=== PATIENT | female | born 1995 | race Caucasian/White ===

== ENCOUNTER → 2017-03-25 | Outpatient (REF) | payer BC ==
[~2017-03-25] MED LIST: FLEXERIL PO; TYLENOL OR
== END ==
LOC: M SFHCWAGY 14:58
PROVIDERS: ATTEND Nurse Practitioner Women's Health
DX: Z12.4 Encounter for screening for malignant neoplasm of cervix (principal)

== ENCOUNTER → 2018-01-18 | Outpatient (REF) | payer BC ==
[2018-01-18 22:55] LABS: CHLAMYDIA DNA AMPLIFICATION POSITIVE (NEGATIVE); GC DNA AMPLIFICATION NEGATIVE (NEGATIVE)
[2018-01-19 11:03] LABS: HEPATITIS B SURFACE ANTIGEN NEGATIVE (NEGATIVE)
[2018-01-19 11:28] LABS: HEPATITIS B CORE ANTIBODY IGM NEGATIVE (NEGATIVE)
[2018-01-19 11:32] LABS: HEPATITIS A ANTIBODY IGM NEGATIVE (NEGATIVE)
== END ==
LOC: M SFHCLERA 17:00
DX: J02.9 Acute pharyngitis, unspecified (principal); Z11.3 Encounter for screening for infections with a predominantly sexual mode of transmission
CPT/HCPCS: 87340

== ENCOUNTER 2018-04-07 13:20 | Emergency (ER) | payer BC ==
[2018-04-07] MEDS: IBUPROFEN 800 MG TAB PO (14:15)
[2018-04-07 14:25] LABS: BASO # 0.1 10^3/uL (0.0-0.2); BASO % 0.3 % (0.0-1.0); EOS % 0.1 % (0.0-3.0); HEMATOCRIT 41.3 % (36.0-47.0); HEMOGLOBIN 13.7 g/dl (12.0-15.5); IMMATURE GRANULOCYTE % 0.5 % (0-3.0); LYMPH # 1.3 10^3/uL (1.5-6.5); LYMPH % 7.4 % (24.0-44.0); MEAN CORPUSCULAR HEMOGLOBIN 26.9 pg (27.0-33.0); MEAN CORPUSCULAR HGB CONC 33.2 g/dl (32.0-36.5); MONO # 1.5 10^3/uL (0.0-0.8); MONO % 8.4 % (0.0-5.0); NEUTROPHILS # 14.4 10^3/uL (1.8-7.7); NEUTROPHILS % 83.3 % (36.0-66.0); PLATELET COUNT, AUTOMATED 291 10^3/uL (150-450); RED CELL DISTRIBUTION WIDTH 13.7 % (11.5-14.5); WHITE BLOOD COUNT 17.2 10^3/uL (4.0-10.0)
[2018-04-07 14:41] LABS: CONTROL LINE MONO INT CTR LINE PRESENT; MONO SCRN NEGATIVE (NEGATIVE)
[2018-04-07 14:45] LABS: ANION GAP 10 MEQ/L (8-16); BLOOD UREA NITROGEN 7 MG/DL (7-18); C REACTIVE PROTEIN QUANTITATIV 8.91 MG/DL (0.00-0.30); CARBON DIOXIDE LEVEL 26 MEQ/L (21-32); CHLORIDE LEVEL 100 MEQ/L (98-107); CREATININE FOR GFR 0.78 MG/DL (0.55-1.30); GLOMERULAR FILTRATION RATE > 60.0 (>60); GLUCOSE, FASTING 96 MG/DL (70-100); POTASSIUM SERUM 4.3 MEQ/L (3.5-5.1); SODIUM LEVEL 136 MEQ/L (136-145)
[2018-04-07 15:00] LABS: ERYTHROCYTE SEDIMENTATION RATE 21 mm/hr (0-20)
== END 2018-04-07 15:28 | disposition home or self-care (01) ==
LOC: M ED 13:20
DX: J02.9 Acute pharyngitis, unspecified (principal); D72.829 Elevated white blood cell count, unspecified; Z98.890 Other specified postprocedural states
CPT/HCPCS: 80048

== ENCOUNTER → 2018-07-20 | Outpatient (REF) | payer BC ==
[2018-07-20 15:22] LABS: CHLAMYDIA DNA AMPLIFICATION NEGATIVE (NEGATIVE); GC DNA AMPLIFICATION NEGATIVE (NEGATIVE)
== END ==
LOC: M SFHCWAGY 11:25
DX: Z12.4 Encounter for screening for malignant neoplasm of cervix (principal)
CPT/HCPCS: 87591

== ENCOUNTER → 2019-05-02 | Outpatient (REF) | payer BC ==
[~2019-05-02] MED LIST changes: +IBUP-1022 PO; +KEFL500C17 PO
[2019-05-02 21:35] LABS: CHLAMYDIA DNA AMPLIFICATION NEGATIVE (NEGATIVE); GC DNA AMPLIFICATION NEGATIVE (NEGATIVE)
== END ==
LOC: M LAB REF 17:33
PROVIDERS: ATTEND Advanced Practice Midwife
DX: Z34.01 Encounter for supervision of normal first pregnancy, first trimester (principal); Z3A.00 Weeks of gestation of pregnancy not specified

== ENCOUNTER → 2019-06-01 | Outpatient (CLI) | payer BC ==
[~2019-06-01] MED LIST changes: +ACET-683 PO; +IBUP80TA PO; +STUACAP PO
--- NOTE | 2019-06-02 03:27 | REP ---
Clinical: Anatomical evaluation. Comparison: None . Findings: Examination demonstrates a single live intrauterine in cephalic presentation. motion is identified by technologist. Placenta is noted anterior and grade zero without evidence for placenta previa or abruption. Amniotic fluid volume is normal. Cervix measures 4.2 cm in length and appears closed. No evidence for nuchal cord. Gestational age by LMP 19 weeks 1 day with ADELINA 10/25/2019 . Gestational age by current measurements the 18 weeks 5 days with ADELINA 10/28/2019 . FHR equals 160 beats per minute. BPD 4.0 cm 18 weeks 1 day HC 16.1 cm 18 weeks 6 days AC 13.3 cm 18 weeks 5 days FL 2.90 cm 19 weeks 0 days HL 2.8 cm 18 weeks 6 days HC/AC ratio 1.21 Estimated weight 259 grams ( 37 percentile). Anatomical assessment demonstrates normal structures including cranium, choroid plexus, cavum, cerebellum/posterior fossa, lungs, four-chamber heart, diaphragm, stomach, cord insertion/three-vessel cord, kidneys/bladder, spine, and extremities. Limited evaluation of the facial features and cardiac ventricular outflow tracts. Impression: Single live intrauterine in cephalic presentation demonstrating appropriate interval growth. Anatomical limitations as noted above. Electronically Signed by Medhat Burns MD 06/02/2019 03:18 A
== END ==
LOC: M RAD 13:19
PROVIDERS: ATTEND Advanced Practice Midwife
DX: Z34.82 Encounter for supervision of other normal pregnancy, second trimester (principal); Z3A.18 18 weeks gestation of pregnancy

== ENCOUNTER → 2019-07-13 | Outpatient (CLI) | payer BC ==
[~2019-07-13] MED LIST changes: -ACET-683 PO; -IBUP80TA PO; -STUACAP PO
--- NOTE | 2019-07-14 04:05 | REP ---
Clinical: Anatomical evaluation. Comparison: 06/01/2019 . Findings: Examination demonstrates a single live intrauterine in cephalic presentation. motion is identified by technologist. Placenta is noted anterior and grade one without evidence for placenta previa or abruption. Amniotic fluid volume is normal. Cervix measures 3.9 cm in length and appears closed. No evidence for nuchal cord. Gestational age by LMP 25 weeks 1 day with ADELINA 10/25/2019 . Gestational age by current measurements 25 weeks 0 days with ADELINA is 10/26/2019 . FHR equals 132 beats per minute. Estimated weight 774 grams ( 44th percentile). Anatomical assessment demonstrates normal structures including cranium, choroid plexus, cavum, cerebellum/posterior fossa, facial features, lungs, four-chamber heart/ventricular outflow tracts, diaphragm, stomach, cord insertion/three-vessel cord, kidneys/bladder, and lower extremities. Impression: 1. single live intrauterine in cephalic presentation demonstrating appropriate interval growth. 2. In conjunction with prior examination anatomical assessment is complete and normal. No gross abnormalities are identified. Electronically Signed by Medhat Burns MD 07/14/2019 03:57 A
== END ==
LOC: M RAD 10:59
PROVIDERS: ATTEND Obstetrics & Gynecology
DX: Z34.02 Encounter for supervision of normal first pregnancy, second trimester (principal)

== ENCOUNTER → 2019-07-24 | Outpatient (CLI) | payer BC ==
[2019-07-24 20:35] LABS: GLUCOSE CHALLENGE TEST 1 HOUR 88 MG/DL (LESS THAN 140)
[2019-07-24 20:36] LABS: HEMATOCRIT 36.6 % (36.0-47.0); HEMOGLOBIN 12.1 g/dl (12.0-15.5); MEAN CORPUSCULAR HEMOGLOBIN 29.1 pg (27.0-33.0); MEAN CORPUSCULAR HGB CONC 33.1 g/dl (32.0-36.5); PLATELET COUNT, AUTOMATED 336 10^3/uL (150-450); RED BLOOD COUNT 4.16 10^6/uL (4.00-5.40); WHITE BLOOD COUNT 10.4 10^3/uL (4.0-10.0)
[2019-07-24 21:03] LABS: RUBELLA IgG QUALITATIVE IMMUNE (IMMUNE)
== END ==
LOC: M LRY 14:45
PROVIDERS: ATTEND Obstetrics & Gynecology
DX: Z34.02 Encounter for supervision of normal first pregnancy, second trimester (principal); Z36.89 Encounter for other specified antenatal screening
CPT/HCPCS: 36415; 82950; 85027; 86762; 86850; 86900; 86901; J2790

== ENCOUNTER → 2019-09-26 | Outpatient (REF) | payer BC | LOC: M SFHCWAGY 16:55 | PROVIDERS: ATTEND Advanced Practice Midwife | DX: Z34.93 Encounter for supervision of normal pregnancy, unspecified, third trimester (principal) ==

== ENCOUNTER → 2019-10-02 | Outpatient (REF) | payer BC | LOC: M PLALAB 10:58 | PROVIDERS: ATTEND Advanced Practice Midwife | DX: Z36.85 Encounter for antenatal screening for Streptococcus B (principal) ==

== ENCOUNTER → 2019-10-13 | Outpatient (CLI) | payer BC ==
[2019-10-13 18:21] LABS: HEMOGLOBIN 13.2 g/dl (12.0-15.5); MEAN CORPUSCULAR HEMOGLOBIN 28.1 pg (27.0-33.0); MEAN CORPUSCULAR HGB CONC 32.2 g/dl (32.0-36.5); MEAN CORPUSCULAR VOLUME 87.4 fl (80.0-96.0); PLATELET COUNT, AUTOMATED 325 10^3/uL (150-450); RED BLOOD COUNT 4.69 10^6/uL (4.00-5.40); WHITE BLOOD COUNT 12.6 10^3/uL (4.0-10.0)
[2019-10-13 18:37] LABS: TOTAL PROTEIN,RANDOM URINE 26.9 MG/DL (0.0-12.0)
[2019-10-13 18:40] LABS: ALT/SGPT 31 U/L (12-78); BILIRUBIN,TOTAL 0.3 MG/DL (0.2-1.0); GLOMERULAR FILTRATION RATE > 60.0 (>60); LDH LACTATE DEHYDROGENASE 189 U/L (84-246); URIC ACID 5.3 MG/DL (2.6-6.0)
== END ==
LOC: M PLALAB 15:40
PROVIDERS: ATTEND Advanced Practice Midwife
DX: O16.3 Unspecified maternal hypertension, third trimester (principal); Z3A.00 Weeks of gestation of pregnancy not specified

== ENCOUNTER 2019-10-28 16:47 | Inpatient (IN) | payer BC ==
[2019-10-28] VITALS (27 sets, daily range): BP systolic 113–194; BP diastolic 53–138
[~2019-10-28] VITALS: Ht 154.9 cm; Wt 82.8 kg
[2019-10-28] MEDS ORDERED: STUACAP PO (17:31)
[2019-10-28 20:25] LABS: HEMATOCRIT 39.5 % (36.0-47.0); HEMOGLOBIN 12.9 g/dl (12.0-15.5); MEAN CORPUSCULAR HEMOGLOBIN 27.8 pg (27.0-33.0); MEAN CORPUSCULAR HGB CONC 32.7 g/dl (32.0-36.5); MEAN CORPUSCULAR VOLUME 85.1 fl (80.0-96.0); PLATELET COUNT, AUTOMATED 282 10^3/uL (150-450); RED BLOOD COUNT 4.64 10^6/uL (4.00-5.40); WHITE BLOOD COUNT 14.6 10^3/uL (4.0-10.0)
[2019-10-28] MEDS ORDERED: FENTANYL 2MCG/ML ROPIVACAINE 0.2% IN 0.9% NACL 100ML IVBAG As Ordered ONE (20:41)
[2019-10-28] MEDS ORDERED: LR 1,000 ML IV SCH (21:00)
[2019-10-28] MEDS ORDERED: LR 1,000 ML IV ONE (21:00)
[2019-10-28] MEDS: FENTANYL/ROPIVACAINE/NACL BAG 100 ML EPIDURAL SCH (21:38)
--- NOTE | 2019-10-28 22:09 | HPEPDOC ---
Obstetrical History & Physical General Date of Admission Oct 28, 2019 at 18:40 History of Present Illness 24-year-old 1, para 0 at 40 weeks 0 days estimated gestational age by last which appeared confirmatory ten-week ultrasound presents to labor delivery completes contractions. She reports contractions throughout the day. She denies any vaginal bleeding, leakage of fluid. She reports active movement. Her course has been unremarkable. She initiated care first trimesters and has been appropriate throughout. 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 BREAST: . ABDOMEN: Gravid and non-tender to touch. FETUS: Is vertex (VTX) by sterile vaginal examination (SVE), fetus is vertex (VTX) by Mohsen. HEART RATE: Regular rate and rhythm. LUNGS: Clear to auscultation (CTA). EXTREMITIES: No edema. No clonus. Deep tendon reflexes (DTRs) + . Vital Signs/I&O Vital Signs Date Time Temp Pulse Resp B/P (MAP) Pulse Ox O2 Delivery O2 Flow Rate FiO2 10/28/19 18:50 98.1 83 18 133/81 (98) Room Air Laboratory Data 24H LABS Laboratory Tests 2 10/28/19 18:42: Serology Scanned Report Hepatitis B Testing 10/28/19 19:57: Nucleated Red Blood Cells % (auto) 0.0 CBC/BMP Laboratory Tests 10/28/19 19:57 Pertinent Laboratoy Data Blood Type: A- RBC Antibody Screen: Negative HIV: Negative Hepatitis B: Negative Hepatitis C: Negative Rapid Plasma Reagin: Nonreactive Rubella: Immune Chlamydia/Gonorrhea: Negative Group B Streptococcus: Negative Cystic Fibrosis: Negative Anatomy Ultrasound Placenta Location: Anterior Normal Anatomy: Yes Placenta Previa: No Steroid Therapy Steroid Therapy: No Vaginal Examination Dilation: 4 cm Effacement: 70% Station: -2 Cervical Consistency: Medium Cervical Position: Middle Presentation: Cephalic presentation Assessment Heart Rate (FHR): 130 Variability: Moderate Accelerations: Positive Decelerations: Variable Tocometer Contractions: Yes Frequency: regular Assessment/Plan Assessment 24-year-old 1, para 0 at 40 weeks 4 days estimated gestational age here in active labor shortly after presentation she had a spontaneous rupture of membranes. 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 Diet: Clears. Group B Streptococcus (GBS) negative. Labs and intravenous (IV) per unit protocol. Counseled on Pitocin and induction of labor (IOL). Anticipate normal spontaneous delivery (). C-S as appropriate. Labor and Delivery Counseling Patient's been consented and counseled in regards to medications procedures performed labor and delivery. She is also been verbally consented for emergency surgery, blood products and anesthesia desires to proceed with admission RONDA PALACIOS MD. Oct 28, 2019 22:09
[2019-10-28] MEDS ORDERED: LABETALOL HCL 100 MG/20 ML VIAL IV STA (23:41)
[2019-10-29] VITALS (33 sets, daily range): BP systolic 110–132; BP diastolic 54–79
[2019-10-29] MEDS ORDERED: NALOXONE INJ 0.4 MG/1 ML VIAL (J2310) IV PRN (02:00)
[2019-10-29] MEDS ORDERED: REFRIGERATOR IV KEYS XX PRN (02:00)
[2019-10-29] MEDS ORDERED: EPIDURAL/PCA KEYS XX PRN (02:00)
[2019-10-29] MEDS ORDERED: EPIDURAL COMMENT XX SCH (02:00)
[2019-10-29] MEDS ORDERED: diphenhydrAMINE INJ 50MG/ML VIAL (J1200) IV PRN (02:00)
[2019-10-29] MEDS ORDERED: ONDANSETRON 4MG/2ML VIAL (J2405) IV PRN (02:00)
[2019-10-29] MEDS ORDERED: LACTATED RINGER'S 1000 ML IV PRN (02:00)
[2019-10-29] MEDS ORDERED: ePHEDrine SULFATE 25 MG/5 ML(5MG/ML) SYRINGE IV PRN (02:00)
[2019-10-29] MEDS ORDERED: ACETAMINOPHEN 500 MG TAB PO PRN (04:45)
[2019-10-29] MEDS: FENTANYL/ROPIVACAINE/NACL BAG 100 ML EPIDURAL SCH (05:38)
[2019-10-29] MEDS ORDERED: OXYTOCIN 30 UNITS IN 0.9% NaCl 500ML IV BAG (J2590) As Ordered ONE (06:47)
[2019-10-29] MEDS ORDERED: OXYTOCIN DRIP 30 UNITS in IV 1 EA IV SCH (08:23)
[2019-10-29] MEDS ORDERED: ACETAMINOPHEN TAB 650MG DOSE (2X325MG) PO PRN (08:30)
[2019-10-29] MEDS ORDERED: METHYLERGONOVINE MALEATE 0.2 MG TAB PO PRN (08:30)
[2019-10-29] MEDS ORDERED: DOCUSATE SODIUM 100 MG CAP PO PRN (08:30)
[2019-10-29] MEDS ORDERED: ANUSOL HC CREAM 30GM TOP PRN (08:30)
[2019-10-29] MEDS ORDERED: IBUPROFEN 600 MG TAB PO PRN (08:30)
[2019-10-29] MEDS ORDERED: MEASLES,MUMPS,RUBELLA VACCINE INJ (MMR-II) (90707) SC SCH (08:30)
[2019-10-29] MEDS ORDERED: RHOGAM 300 MCG (1500 IU) INJ (J2790) IM SCH (08:30)
[2019-10-29] MEDS ORDERED: MOM 30ML SUSPENSION UDC PO PRN (08:30)
[2019-10-29] MEDS ORDERED: IBUPROFEN 800 MG TAB PO PRN (08:30)
[2019-10-29] MEDS ORDERED: DIBUCAINE 1% OINTMENT 30GM TOP PRN (08:30)
--- NOTE | 2019-10-29 08:39 | DNPDOC ---
[facility] Delivery Note Delivery Note DATE OF DELIVERY: 10/29/19 PREDELIVERY DIAGNOSIS: 40-4/7 weeks' gestation and labor. POST DELIVERY DIAGNOSIS: Delivered. PROCEDURE: Spontaneous vaginal delivery. APPLE PICKING SUPERVISOR: Dr. Coon ANESTHESIA: Epidural. ESTIMATED BLOOD LOSS: 300 mL. GENDER: Female. APGARS:, 9 and 9. WEIGHT:, 3110 grams or 6 pounds 4 ounces. LACERATIONS:. Right labial laceration COUNTS: 5 laparotomy sponges accounted for prior to after delivery. One sharps removed delivery field. DELIVERY NOTE: 10/29/2019, had a spontaneous vaginal delivery of viable, female , Apgars, 9 and 9. Weight was 3110 g, 6 lbs. 4 oz. Head was delivered occiput anterior (OA), followed by delivery of the shoulders and corpus. Infant was handed to mom with a good cry. Cord was clamped times two and was cut by the father of baby under my direction. Placenta was then drained and delivered grossly intact. A premixed bag of 500 mL of normal saline with 30 units of Pi tocin was then bolused along with uterine massage until the uterus was firm. On inspection,. There was a right labial laceration which was repaired with 3-0 Vicryl On reinspection, cervix, vagina, perineum was grossly intact and hemostatic. Mom and baby in recovery on stable condition. RONDA COON MD. Oct 29, 2019 08:39
[2019-10-29] MEDS: PRENATAL VITAMINS CHEWABLE TABLET PO SCH (09:19)
[2019-10-29] MEDS: ACETAMINOPHEN 500 MG TAB PO PRN (17:10)
[2019-10-30 06:00] VITALS: BP 105/60
--- NOTE | 2019-10-30 07:59 | IPNPDOC ---
Progress Note Date of Service: Oct 30, 2019 Day#: 1 Progress Note SUBJECT: Doing well without any issues. Positive voids, positive ambulation and breast-feeding OBJECTIVE: VITAL SIGNS: Within normal limits, afebrile. Alert and oriented times three. Abdomen: Fundus firm at U-2. Soft, NTTP. [Minimal] lochia. ASSESSMENT: day #1 status post normal spontaneous vaginal deliveries. Recovering in stable condition PLAN: 1. Continue routine care. 2. Discharge plans for tomorrow VS, I&O, 24H, Fishbone Vital Signs/I&O Vital Signs Date Time Temp Pulse Resp B/P (MAP) Pulse Ox O2 Delivery O2 Flow Rate FiO2 10/30/19 06:00 97.7 76 20 105/60 (75) 97 Room Air I&O- Last 24 Hours up to 6 AM 10/30/19 06:00 Intake Total 4025.4 ml Output Total 800 ml Balance 3225.4 ml RONDA PALACIOS MD. Oct 30, 2019 07:59
[2019-10-30] MEDS ORDERED: INFLUENZA QUADRIVALENT PF VACCINE 0.5ML SYRINGE (90686) IM ONE (09:00)
[2019-10-30] MEDS: PRENATAL VITAMINS CHEWABLE TABLET PO SCH (09:44)
[2019-10-30 18:00] VITALS: BP 123/72
[2019-10-30] MEDS: ACETAMINOPHEN 500 MG TAB PO PRN (21:20)
[2019-10-31 05:47] VITALS: BP 117/69
[2019-10-31] MEDS ORDERED: ACET-683 PO (08:16)
[2019-10-31] MEDS ORDERED: IBUP80TA PO (08:16)
[2019-10-31] MEDS: PRENATAL VITAMINS CHEWABLE TABLET PO SCH (09:00)
== END 2019-10-31 12:15 | disposition home or self-care (01) | DRG 560 ==
LOC: M LDO 16:47 → M LDI 18:40 → M OBS 10-29 11:06
PROVIDERS: ADMIT Obstetrics & Gynecology; ATTEND Obstetrics & Gynecology
PROC: 10E0XZZ Delivery of Products of Conception, External Approach (ICD-10-PCS; principal; 2019-10-29)
PROC: 0HQ9XZZ Repair Perineum Skin, External Approach (ICD-10-PCS; 2019-10-29)
DX: O48.0 Post-term pregnancy (principal); O70.0 First degree perineal laceration during delivery; Z3A.40 40 weeks gestation of pregnancy; Z37.0 Single live birth

== ENCOUNTER → 2021-06-03 | Outpatient (CLI) | payer OTHER ==
[~2021-06-03] MED LIST changes: +ACET-683 PO; +IBUP80TA PO; +STUACAP PO
[2021-06-03 17:23] LABS: HEMATOCRIT 38.9 % (36.0-47.0); HEMOGLOBIN 12.7 g/dl (12.0-15.5); MEAN CORPUSCULAR HEMOGLOBIN 27.2 pg (27.0-33.0); MEAN CORPUSCULAR HGB CONC 32.6 g/dl (32.0-36.5); MEAN CORPUSCULAR VOLUME 83.3 fl (80.0-96.0); PLATELET COUNT, AUTOMATED 330 10^3/uL (150-450); RED BLOOD COUNT 4.67 10^6/uL (4.00-5.40); WHITE BLOOD COUNT 9.8 10^3/uL (4.0-10.0)
[2021-06-03 18:26] LABS: HEPATITIS C VIRUS ABY INDEX 0.1 INDEX (<0.8); HIV 1&2 SCREEN CENTAUR NEGATIVE (NEGATIVE)
[2021-06-03 18:33] LABS: GC DNA AMPLIFICATION NEGATIVE (NEGATIVE)
== END ==
LOC: M PLALAB 14:47
PROVIDERS: ATTEND Advanced Practice Midwife
DX: Z36.89 Encounter for other specified antenatal screening (principal); Z3A.08 8 weeks gestation of pregnancy

== ENCOUNTER → 2021-07-02 | Outpatient (REF) | payer OTHER, MEDICAID | LOC: M SFHCWAGY 12:50 | PROVIDERS: ATTEND Advanced Practice Midwife | DX: Z12.4 Encounter for screening for malignant neoplasm of cervix (principal) ==

== ENCOUNTER → 2021-08-28 | Outpatient (CLI) | payer OTHER, MEDICAID ==
--- NOTE | 2021-08-28 15:07 | REP ---
INDICATION: ANATOMY. COMPARISON: None. TECHNIQUE: Real-time sonographic evaluation of the gravid uterus performed. FINDINGS: Estimated gestational age is21 weeks 0 days, EDC 01/08/2022. Today's measurements indicate appropriate growth. Presentation: Transverse Placenta posterior, grade 1, without evidence of placenta previa. heart rate is recorded at 165 beats per minute. Amniotic fluid is subjectively normal. Closed cervical length is measured at 4.7 cm. Biometry chart: BPD: 52 mm, 21 weeks 5 days, 69th percentile. HC: 198 mm, 22 weeks 0 days, 78th percentile AC: 177 mm, 22 weeks 4 days, 85th percentile Femur length: 37 mm, 21 weeks 4 days, 66th percentile HC to AC ratio: 1.12, normal range 1.05-1.24. Estimated weight: 479g, 94th percentile. anatomy: Cranium: Grossly normal Lateral Ventricles/Choroid Plexus: Grossly normal Posterior Fossa/Cerebellum: Grossly normal Nose/lips/profile: Grossly normal Four chamber heart: Grossly normal Right ventricular outflow tract: Grossly normal Left ventricular outflow tract: Grossly normal Left-sided stomach: Grossly normal Kidneys: Grossly normal Bladder: Grossly normal Cord Insertion: Grossly normal 3 vessel cord: Grossly normal Spine: Not well seen due to position IMPRESSION: Viable single intrauterine gestation as above. <Electronically signed by Fernando Myers > 08/28/21 [id number]
== END ==
LOC: M WHC 13:04
PROVIDERS: ATTEND Advanced Practice Midwife
DX: Z36.3 Encounter for antenatal screening for malformations (principal); Z3A.21 21 weeks gestation of pregnancy

== ENCOUNTER → 2021-09-26 | Outpatient (CLI) | payer OTHER ==
[2021-09-26 17:48] LABS: HEMATOCRIT 37.4 % (36.0-47.0); HEMOGLOBIN 12.5 g/dl (12.0-15.5); MEAN CORPUSCULAR HEMOGLOBIN 28.6 pg (27.0-33.0); MEAN CORPUSCULAR HGB CONC 33.4 g/dl (32.0-36.5); MEAN CORPUSCULAR VOLUME 85.6 fl (80.0-96.0); PLATELET COUNT, AUTOMATED 292 10^3/uL (150-450); RED BLOOD COUNT 4.37 10^6/uL (4.00-5.40); WHITE BLOOD COUNT 11.7 10^3/uL (4.0-10.0)
[2021-09-26 18:52] LABS: GC DNA AMPLIFICATION NEGATIVE (NEGATIVE)
== END ==
LOC: M PLALAB 08-28 14:43
PROVIDERS: ATTEND Specialist
DX: Z36.89 Encounter for other specified antenatal screening (principal)

== ENCOUNTER → 2021-09-26 | Outpatient (CLI) | payer OTHER, MEDICAID ==
--- NOTE | 2021-09-27 16:59 | REP ---
INDICATION: F/U ANATOMY COMPARISON: 08/28/2021 TECHNIQUE: Transabdominal obstetrical ultrasound with color Doppler evaluation. FINDINGS: Examination demonstrates a single live intrauterine in variable presentation. motion is identified by technologist. Placenta is noted posterior and grade 0 without evidence for placenta previa or abruption. Amniotic fluid volume is normal. Cervix measures 4.8 cm in length and appears closed.. Selected gestational age: 25 weeks 1 day with ADELINA 01/08/2022. Gestational age by current measurements 25 weeks 5 days with ADELINA 01/04/2022. FHR equals 142 beats per minute. Estimated weight 843 grams (65thpercentile). Anatomical assessment demonstrates normal structures including images of the spine. IMPRESSION: Single live intrauterine in variable presentation demonstrating appropriate estimated weight. In conjunction with prior examination anatomical assessment is complete and normal. <Electronically signed by Medhat Burns > 09/27/21 [id number]
== END ==
LOC: M WHC 14:03
PROVIDERS: ATTEND Obstetrics & Gynecology
DX: Z36.89 Encounter for other specified antenatal screening (principal); Z3A.25 25 weeks gestation of pregnancy

== ENCOUNTER → 2021-12-10 | Outpatient (REF) | payer OTHER | LOC: M SFHCWAGY 16:44 | PROVIDERS: ATTEND Obstetrics & Gynecology | DX: Z36.9 Encounter for antenatal screening, unspecified (principal); Z3A.00 Weeks of gestation of pregnancy not specified ==

== ENCOUNTER 2022-01-05 12:55 | Inpatient (IN) | payer OTHER ==
[2022-01-05] VITALS (20 sets, daily range): BP systolic 110–140; BP diastolic 56–91
[~2022-01-05] VITALS: Ht 154.9 cm; Wt 85.8 kg
[2022-01-05] MEDS ORDERED: HOME MED LIST COMPLETE! XX SCH (13:15)
[2022-01-05] MEDS ORDERED: LACTATED RINGER'S 1000 ML IV STA (13:38)
[2022-01-05] MEDS ORDERED: CARBOPROST TROMETHAMINE 250 MCG/ML AMP IM PRN (13:40)
[2022-01-05] MEDS ORDERED: LR 1,000 ML IV SCH (13:40)
[2022-01-05] MEDS ORDERED: LIDOCAINE 1% MDV 20ML VIAL INFIL PRN (13:40)
[2022-01-05] MEDS ORDERED: TRANEXAMIC ACID INJection 1,000 MG in NS 100 ML IV PRN (13:40)
[2022-01-05] MEDS ORDERED: METHYLERGONOVINE MALEATE 0.2 MG/ML VIAL (J2210) IM PRN (13:40)
[2022-01-05] MEDS ORDERED: OXYTOCIN DRIP 30 UNITS in IV 1 EA IV PRN (13:40)
[2022-01-05 14:06] LABS: HEMATOCRIT 39.3 % (36.0-47.0); HEMOGLOBIN 13.6 g/dl (12.0-15.5); MEAN CORPUSCULAR HEMOGLOBIN 28.5 pg (27.0-33.0); MEAN CORPUSCULAR HGB CONC 34.6 g/dl (32.0-36.5); MEAN CORPUSCULAR VOLUME 82.4 fl (80.0-96.0); PLATELET COUNT, AUTOMATED 269 10^3/uL (150-450); RED BLOOD COUNT 4.77 10^6/uL (4.00-5.40); WHITE BLOOD COUNT 13.8 10^3/uL (4.0-10.0)
[2022-01-05] MEDS ORDERED: FENTANYL 2MCG/ML ROPIVACAINE 0.2% IN 0.9% NACL 100ML IVBAG As Ordered ONE (14:55)
[2022-01-05] MEDS ORDERED: diphenhydrAMINE 50MG/ML VIAL (J1200) IV PRN (15:30)
[2022-01-05] MEDS ORDERED: EPIDURAL/PCA KEYS XX PRN (15:30)
[2022-01-05] MEDS ORDERED: ePHEDrine SULFATE 25 MG/5 ML(5MG/ML) SYRINGE IV PRN (15:30)
[2022-01-05] MEDS ORDERED: FENTANYL/ROPIVACAINE/NACL BAG 100 ML EPIDURAL SCH (15:30)
[2022-01-05] MEDS ORDERED: ONDANSETRON 4MG/2ML VIAL IV PRN (15:30)
[2022-01-05] MEDS ORDERED: REFRIGERATOR IV KEYS XX PRN (15:30)
[2022-01-05] MEDS ORDERED: NALOXONE INJ 0.4MG/1ML VIAL (J2310 PER 1MG) IV PRN (15:30)
[2022-01-05] MEDS ORDERED: LACTATED RINGER'S 1000 ML IV PRN (15:30)
[2022-01-05] MEDS ORDERED: EPIDURAL COMMENT XX SCH (15:30)
[2022-01-05] MEDS ORDERED: ANUSOL HC CREAM 30GM TOP PRN (20:05)
[2022-01-05] MEDS ORDERED: IBUPROFEN 600MG TAB PO PRN (20:05)
[2022-01-05] MEDS ORDERED: DIBUCAINE 1% OINTMENT 30GM TOP PRN (20:05)
[2022-01-05] MEDS ORDERED: MEASLES,MUMPS,RUBELLA VACCINE INJ (MMR-II) (90707) SC SCH (20:05)
[2022-01-05] MEDS ORDERED: DOCUSATE SODIUM 100MG CAPSULE PO PRN (20:05)
[2022-01-05] MEDS ORDERED: MOM 30ML SUSPENSION UDC PO PRN (20:05)
[2022-01-05] MEDS ORDERED: ACETAMINOPHEN TAB 650MG DOSE (2X325MG) PO PRN (20:05)
[2022-01-05] MEDS ORDERED: METHYLERGONOVINE MALEATE 0.2 MG TAB PO PRN (20:05)
[2022-01-05] MEDS ORDERED: RHOGAM 300 MCG (1500 IU) INJ (J2790) IM SCH (20:05)
[2022-01-05] MEDS ORDERED: IBUPROFEN 800 MG TAB PO PRN (20:05)
[2022-01-05] MEDS ORDERED: ACETAMINOPHEN 500 MG TAB PO PRN (20:05)
[2022-01-06 06:44] VITALS: BP 128/76
[2022-01-06] MEDS: PRENATAL VITAMINS CHEWABLE TABLET PO SCH (08:29)
[2022-01-06 18:00] VITALS: BP 106/60
[2022-01-07 06:02] VITALS: BP 115/64
[2022-01-07] MEDS: PRENATAL VITAMINS CHEWABLE TABLET PO SCH (08:20)
[2022-01-07] MEDS ORDERED: BOOSTRIX/ADACEL VACCINE (DIPHTH/PERTUSS/ACELL/TETANUS) 0.5ML SYR IM ONE (09:00)
== END 2022-01-07 14:17 | disposition home or self-care (01) | DRG 560 ==
LOC: M LDO 12:55 → M LDI 13:38 → M OBS 21:16
PROVIDERS: ADMIT Advanced Practice Midwife; ATTEND Advanced Practice Midwife
PROC: 10E0XZZ Delivery of Products of Conception, External Approach (ICD-10-PCS; principal; 2022-01-05)
DX: O69.1XX0 Labor and delivery complicated by cord around neck, with compression, not applicable or unspecified (principal); Z37.0 Single live birth; Z3A.39 39 weeks gestation of pregnancy

== ENCOUNTER 2023-01-01 04:58 | Emergency (ER) | payer OTHER ==
[~2023-01-01] VITALS: Ht 154.9 cm; Wt 63.8 kg
[2023-01-01 06:01] LABS: BASO # 0.1 10^3/uL (0.0-0.2); BASO % 0.5 % (0.0-1.0); EOS # 0.1 10^3/uL (0.0-0.5); EOS % 0.6 % (0.0-3.0); HEMATOCRIT 44.2 % (36.0-47.0); HEMOGLOBIN 14.6 g/dl (12.0-15.5); LYMPH # 1.6 10^3/uL (1.5-5.0); LYMPH % 16.8 % (24.0-44.0); MEAN CORPUSCULAR HEMOGLOBIN 27.6 pg (27.0-33.0); MEAN CORPUSCULAR VOLUME 83.6 fl (80.0-96.0); MONO # 0.4 10^3/uL (0.0-0.8); MONO % 4.3 % (2.0-8.0); NEUTROPHILS # 7.5 10^3/uL (1.5-8.5); NEUTROPHILS % 77.6 % (36.0-66.0); PLATELET COUNT, AUTOMATED 333 10^3/uL (150-450); RED BLOOD COUNT 5.29 10^6/uL (4.00-5.40); WHITE BLOOD COUNT 9.6 10^3/uL (4.0-10.0)
[2023-01-01 06:27] LABS: LIPASE 34 U/L (12-53)
[2023-01-01 06:29] LABS: ALBUMIN 4.3 G/DL (3.2-5.2); ALKALINE PHOSPHATASE 40 U/L (46-116); ALT/SGPT 18 U/L (7.0-40); AST/SGOT 11 U/L (<34); BILIRUBIN,DIRECT < 0.1 MG/DL (<0.4); BILIRUBIN,TOTAL 0.2 MG/DL (0.3-1.2); BLOOD UREA NITROGEN 17 MG/DL (9-23); CALCIUM LEVEL 9.3 MG/DL (8.5-10.1); CARBON DIOXIDE LEVEL 28 MMOL/L (20-31); CHLORIDE LEVEL 106 MMOL/L (98-107); CREATININE FOR GFR 0.65 MG/DL (0.55-1.30); GLOMERULAR FILTRATION RATE > 60.0 (>60); GLUCOSE, FASTING 117 MG/DL (60-100); POTASSIUM SERUM 4.3 MMOL/L (3.5-5.1); SODIUM LEVEL 139 MMOL/L (136-145); TOTAL PROTEIN 7.6 G/DL (5.7-8.2)
[2023-01-01] MEDS ORDERED: KETOROLAC 30 MG/ML 1ML VIAL IV ONE (06:30)
[2023-01-01] MEDS ORDERED: NS 1,000 ML IV ONE (06:30)
[2023-01-01] MEDS ORDERED: ONDANSETRON 4MG 2ML VIAL IV ONE (06:30)
[2023-01-01] MEDS ORDERED: DICYCLOMINE 10 MG CAP PO ONE (06:30)
[2023-01-01 06:35] LABS: HCG, SERUM QUALITATIVE NEGATIVE (NEGATIVE)
[2023-01-01] MEDS ORDERED: MORPHINE 4 MG/ML 1ML VIAL IV ONE (07:40)
[2023-01-01] MEDS ORDERED: ISOVUE-370 76% 100ML VIAL As Ordered ONE (07:43)
[2023-01-01] MEDS ORDERED: DICY10CA13 PO (09:30)
[2023-01-01] MEDS ORDERED: ONDA4TAB6 PO (09:30)
[2023-01-01 09:52] VITALS: BP 107/61
== END 2023-01-01 10:00 | disposition home or self-care (01) ==
LOC: M ED 04:58
DX: R10.9 Unspecified abdominal pain (principal); R11.2 Nausea with vomiting, unspecified; R19.7 Diarrhea, unspecified
CPT/HCPCS: 74177; 80048; 80076; 83690; 84703; 85025; 87507; 96374; 96375; 99285; J1885; J2270; J2405

== ENCOUNTER → 2023-09-24 | Outpatient (CLI) | payer OTHER ==
[~2023-09-24] MED LIST changes: +DICY-61 PO; +ONDA4TAB6 PO
[2023-09-24 17:59] LABS: CHLAMYDIA DNA AMPLIFICATION NEGATIVE (NEGATIVE); GC DNA AMPLIFICATION NEGATIVE (NEGATIVE)
[2023-09-24 18:58] LABS: HEMATOCRIT 36.6 % (36.0-47.0); HEMOGLOBIN 12.3 g/dl (12.0-15.5); MEAN CORPUSCULAR HEMOGLOBIN 28.5 pg (27.0-33.0); MEAN CORPUSCULAR HGB CONC 33.6 g/dl (32.0-36.5); MEAN CORPUSCULAR VOLUME 84.7 fl (80.0-96.0); PLATELET COUNT, AUTOMATED 264 10^3/uL (150-450); RED BLOOD COUNT 4.32 10^6/uL (4.00-5.40); WHITE BLOOD COUNT 9.6 10^3/uL (4.0-10.0)
[2023-09-24 19:55] LABS: HIV 1&2 SCREEN NEGATIVE (NEGATIVE)
== END ==
LOC: M PLALAB 14:56
PROVIDERS: ATTEND Advanced Practice Midwife
DX: Z34.92 Encounter for supervision of normal pregnancy, unspecified, second trimester (principal)

== ENCOUNTER → 2023-10-28 | Outpatient (CLI) | payer OTHER | LOC: M WHC 10:06 | PROVIDERS: ATTEND Advanced Practice Midwife | DX: Z34.92 Encounter for supervision of normal pregnancy, unspecified, second trimester (principal) ==

== ENCOUNTER → 2023-12-03 | Outpatient (CLI) | payer OTHER | LOC: M WHC 08:10 | PROVIDERS: ATTEND Advanced Practice Midwife | DX: Z34.82 Encounter for supervision of other normal pregnancy, second trimester (principal); Z3A.23 23 weeks gestation of pregnancy ==

== ENCOUNTER → 2023-12-23 | Outpatient (CLI) | payer OTHER ==
[2023-12-23 10:57] LABS: HEMATOCRIT 35.2 % (36.0-47.0); HEMOGLOBIN 11.9 g/dl (12.0-15.5); MEAN CORPUSCULAR HEMOGLOBIN 29.5 pg (27.0-33.0); MEAN CORPUSCULAR HGB CONC 33.8 g/dl (32.0-36.5); MEAN CORPUSCULAR VOLUME 87.1 fl (80.0-96.0); PLATELET COUNT, AUTOMATED 272 10^3/uL (150-450); RED BLOOD COUNT 4.04 10^6/uL (4.00-5.40); WHITE BLOOD COUNT 11.2 10^3/uL (4.0-10.0)
[2023-12-23 12:35] LABS: GC DNA AMPLIFICATION NEGATIVE (NEGATIVE)
== END ==
LOC: M PLALAB 07:42
PROVIDERS: ATTEND Advanced Practice Midwife
DX: Z34.82 Encounter for supervision of other normal pregnancy, second trimester (principal)

== ENCOUNTER → 2024-01-17 | Outpatient (CLI) | payer OTHER | LOC: M PLALAB 12:02 | PROVIDERS: ATTEND Advanced Practice Midwife | DX: Z34.83 Encounter for supervision of other normal pregnancy, third trimester (principal) | CPT/HCPCS: 86850; 86900; 86901; J2790 ==

== ENCOUNTER → 2024-02-24 | Outpatient (REF) | payer OTHER, MEDICAID ==
[~2024-02-24] MED LIST changes: +ONDA-282 PO; -ONDA4TAB6 PO
== END ==
LOC: M PLALAB 10:00
PROVIDERS: ATTEND Advanced Practice Midwife
DX: Z34.83 Encounter for supervision of other normal pregnancy, third trimester (principal)

== ENCOUNTER → 2024-08-16 | Outpatient (REF) | payer OTHER ==
[2024-08-21 16:39] LABS: HPV APTIMA Not Detected (Not Detected)
== END ==
LOC: M PLALAB 11:39
PROVIDERS: ATTEND Advanced Practice Midwife
DX: Z12.4 Encounter for screening for malignant neoplasm of cervix (principal); R87.610 Atypical squamous cells of undetermined significance on cytologic smear of cervix (ASC-US)